=== PATIENT | female | born 1935 | race African-American/Black ===

== ENCOUNTER 2017-06-17 22:32 | Emergency (ER) | payer OTHER ==
[~2017-06-17] VITALS: Ht 165.1 cm; Wt 59.0 kg
[2017-06-17] MEDS ORDERED: VANCOMYCIN 1 G PREMIX 200 ML IV ONE (23:00)
[2017-06-17] MEDS ORDERED: SODIUM CHLORIDE 0.9% 1,000 ML IV ONE (23:00)
[2017-06-17] MEDS ORDERED: ONDANSETRON HCL 4MG/2ML VIAL IV STA (23:00)
[2017-06-17] MEDS ORDERED: CLINDAMYCIN 600 MG in DEXTROSE 5% WATER 50 ML IV ONE (23:00)
[2017-06-17 23:32] LABS: BASOPHILS % 0.7 % (0.0-2.0); EOSINOPHILS % 0.7 % (0.0-5.0); HEMATOCRIT. 32.9 % (36.0-48.0); HEMOGLOBIN. 10.9 g/dL (12.0-16.0); LYMPHOCYTES % 9.2 % (20.0-50.0); MEAN CORPUSCULAR HEMOGLOBIN 26.7 pg (28.0-32.0); MEAN CORPUSCULAR VOLUME 80.2 fL (81.0-99.0); MEAN PLATELET VOLUME 9.1 fl (7.4-10.4); MONOCYTES % 3.9 % (2.0-8.0); NEUTROPHILS % 85.5 % (40.0-76.0); PLATELET 257 x1000/uL (130-400); RED CELL DISTRIBUTION WIDTH 15.5 % (11.6-14.6)
[2017-06-17 23:34] LABS: INR 1.1
[2017-06-17 23:50] LABS: CARBON DIOXIDE 28 mEq/L (21-32); CHLORIDE 96 mEq/L (98-107); TROPONIN I 0.13 ng/mL (0.00-0.04)
[2017-06-18] LABS: CLARITY URINE CLEAR (CLEAR); COLOR URINE YELLOW (YELLOW); GLUCOSE URINE NEGATIVE (NEGATIVE); KETONES URINE TRACE (NEGATIVE); LEUKOCYTE ESTERASE URINE NEGATIVE (NEGATIVE); NITRITE URINE NEGATIVE (NEGATIVE); OCCULT BLOOD URINE NEGATIVE (NEGATIVE); PH URINE 5.5 (4.5-8.0); PROTEIN URINE NEGATIVE (NEGATIVE); SPECIFIC GRAVITY URINE 1.012 (1.005-1.030); UROBILINOGEN URINE 0.2 E.U./dL (0.2-1.0)
[2017-06-18] MEDS ORDERED: DILT-XR (00:45)
[2017-06-18] MEDS ORDERED: PRADAXA (00:45)
[2017-06-18] MEDS ORDERED: LEVOTHYROXINE (00:47)
[2017-06-18] MEDS ORDERED: LISINOPRIL (00:48)
[2017-06-18] MEDS ORDERED: LOVASTATIN (00:48)
[2017-06-18] MEDS ORDERED: ASPIRIN (00:49)
[2017-06-18 03:18] VITALS: BP 155/73
== END 2017-06-18 04:20 | disposition short-term general hospital (02) ==
LOC: ER 22:50
DX: I48.91 Unspecified atrial fibrillation (principal); I48.92 Unspecified atrial flutter; M27.2 Inflammatory conditions of jaws; E86.0 Dehydration; R79.89 Other specified abnormal findings of blood chemistry; I10 Essential (primary) hypertension; F03.90 Unspecified dementia, unspecified severity, without behavioral disturbance, psychotic disturbance, mood disturbance, and anxiety; E78.00 Pure hypercholesterolemia, unspecified; E11.9 Type 2 diabetes mellitus without complications; Z79.82 Long term (current) use of aspirin; Z79.01 Long term (current) use of anticoagulants
CPT/HCPCS: 36415; 71010; 80053; 81003; 82962; 83605; 84484; 85025; 85610; 87040; 93005; 96365; 96367; 96375; 99285; J2405; J3370; J3490; J7030; J7060